=== PATIENT | female | born 1955 | race Caucasian/White ===

== ENCOUNTER 2021-05-09 16:57 | Emergency (ER) | payer OTHER ==
[~2021-05-09] VITALS: Ht 162.6 cm; Wt 97.1 kg
--- NOTE | 2021-05-09 17:15 | NUR ---
SARA ORONA 89 "was working at [facility] [employer]- started having TOVAR/palpitations HR 169 on arrival-AF. New onset" Patient a/ox4, RR even and unlabored, no sob noted. Needs attended.
[2021-05-09 17:32] LABS: BASOPHILS % (AUTO) 0.5 % (0.0-2.0); EOSINOPHILS % (AUTO) 2.5 % (0.0-6.0); HEMATOCRIT 45 % (33-45); HEMOGLOBIN 14.9 g/dL (11.5-14.8); LYMPHOCYTES # (AUTO) 2.4 K/uL (0.8-4.8); LYMPHOCYTES % (AUTO) 28.8 % (20.0-44.0); MEAN CORPUSCULAR HGB CONC 33 g/dl (31.0-36.0); MEAN CORPUSCULAR VOLUME 89 fL (82-100); MONOCYTES # (AUTO) 0.5 K/uL (0.1-1.30); MONOCYTES % (AUTO) 5.5 % (2.0-12.0); NEUTROPHILS # (AUTO) 5.3 K/uL (1.8-8.9); NEUTROPHILS % (AUTO) 62.7 % (43.0-81.0); PLATELET COUNT (AUTO) 241 K/uL (150-450); RED BLOOD CELL COUNT(AUTO) 5.05 MIL/uL (4.0-5.2); WHITE BLOOD COUNT (AUTO) 8.4 K/uL (4.3-11.0)
[2021-05-09 17:40] LABS: CALCIUM, SERUM 9.4 mg/dL (8.5-10.1); CARBON DIOXIDE 27 mmol/L (21-32); CHLORIDE 104 mmol/L (98-107); CREATININE 0.7 mg/dL (0.6-1.3); GLUCOSE 99 mg/dL (74-106); MAGNESIUM 2.3 mg/dL (1.8-2.4); POTASSIUM 3.3 mmol/L (3.5-5.1); SODIUM SERUM 140 mmol/L (136-145); UREA NITROGEN, BLOOD 17 mg/dL (7-18)
--- NOTE | 2021-05-09 17:45 | NUR ---
urine collected and sent to the lab
[2021-05-09] MEDS ORDERED: LOSA1TAB36 PO (17:52)
[2021-05-09] MEDS ORDERED: ATOR40TA PO (17:52)
[2021-05-09 17:56] LABS: ALANINE AMINOTRANSFERASE 36 U/L (12-78); ALBUMIN 4.2 g/dL (3.4-5.0); ALKALINE PHOSPHATASE 110 U/L (46-116); ASPARTATE AMINOTRANSFERASE 25 U/L (15-37); BILIRUBIN,DIRECT 0.3 mg/dL (0.0-0.2); BILIRUBIN,TOTAL 1.6 mg/dL (0.2-1.0); TOTAL PROTEIN, SERUM 8.1 g/dL (6.4-8.2)
[2021-05-09] MEDS ORDERED: ASPI-1420 PO (18:06)
[2021-05-09 18:37] LABS: THYROID STIMULATING HORMONE 2.395 uIU/mL (0.358-3.74)
--- NOTE | 2021-05-09 18:40 | NUR ---
covid swab sent. Patient's palpitations resolved. Patient in no distress.
[2021-05-09] MEDS ORDERED: ALBUTEROL FS 2.5 MG/3 ML VIAL.NEB CONTNEB ONE (19:00)
--- NOTE | 2021-05-09 19:07 | NUR ---
[facility] GONZ[facility]LEZ HOPKINS WILL CALL BACK.
[2021-05-09] MEDS ORDERED: POTASSIUM CHLORIDE 20 MEQ TAB.PRT.SR PO ONE ×2 (19:16→19:30)
--- NOTE | 2021-05-09 19:35 | NUR ---
DR REBOLLEDO SPEAKING WITH GONZÁLEZ CAZARES
--- NOTE | 2021-05-09 19:59 | NUR ---
[facility] [phone], HANNAH [phone] FOR UPDATES
[2021-05-09] MEDS ORDERED: ASPIRIN 325 MG TABLET PO ONE (20:00)
[2021-05-09] MEDS ORDERED: ASPIRIN 325 MG TABLET ONE (20:12)
--- NOTE | 2021-05-09 20:19 | NUR ---
TRANSFER INFO [facility] [phone] ACCPETING MD ADORE TRENT PRN ETA [phone]
[2021-05-09 21:01] VITALS: BP 145/98
--- NOTE | 2021-05-09 21:58 | NUR ---
gave report to BEVERLY Licea for tang
--- NOTE | 2021-05-09 21:59 | NUR ---
Gave report to EMS for tang
== END 2021-05-09 22:05 | disposition short-term general hospital (02) ==
LOC: ER 16:59
DX: I48.0 Paroxysmal atrial fibrillation (principal); R07.89 Other chest pain; Z20.822 Contact with and (suspected) exposure to COVID-19; E87.6 Hypokalemia; E78.5 Hyperlipidemia, unspecified; I11.9 Hypertensive heart disease without heart failure
CPT/HCPCS: 36415; 71045; 80048; 80076; 83735; 83880; 84439; 84443; 84484; 85025; 85378; 85730; 87426; 93005; 99285; C9803